=== PATIENT | female | born 1985 | race Caucasian/White ===

== ENCOUNTER → 2020-08-13 | Day surgery (SDC) | payer MEDICAID ==
[~2020-08-13] MED LIST: Albuterol 0.083% 2.5 MG/3 ML Neb Soln NEB ONE; Albuterol 0.083% 2.5 MG/3 ML Neb Soln ONE; Ketamine 500 mg/10 ML MDV ONE; Ketorolac 15 MG/ML SDV ONE; Lactated Ringers 1,000 ML IV SCH; Lidocaine 1% 4 ML ONE; Lidocaine 1% with EPINEPHrine 1:100,000 20 ML MDV ONE; Lidocaine 1%/Sod Bicarbonate in NS 8.4% 1 ML Syringe IDERM PRN; Midazolam 1 MG/ML 2 ML SDV ONE; Propofol 200 MG/20 ML SDV ONE; Sodium Chloride 0.9% 10 ML Syringe FLUSH PRN; fentaNYL 100 MCG/2 ML SDV ONE
--- NOTE | 2020-08-13 08:46 | PCM.PREANE ---
Preanesthetic Assessment - Procedure Proposed Procedure: LEEP - Anesthesia/Transfusion/Family Hx Anesthesia History: Prior Anesthesia Without Reaction Family History of Anesthesia Reaction: No - Review of Systems General: No Symptoms Pulmonary: Cough, Sputum (Smoker, 1/2 ppd x 19 years. Last cigarette 07. ), Other (Sleep Apnea, does not wear CPAP unable to tolerate. ) Cardiovascular: No Symptoms Gastrointestinal: No Symptoms Neurological: No Symptoms Other: Reports: None (Obesity BMI 41.7) - Physical Assessment NPO Status Date: 08/12/20 Vital Signs: 98F 16 99 122/83 96% Weight: 103 kg ASA Class: 3 Mental Status: Alert & Oriented x3 Airway Class: Mallampati = 3 Dentition: Reports: Normal Dentition Thyro-Mental Finger Breadths: 2 Mouth Opening Finger Breadths: 3 ROM/Head Extension: Full Lungs: Clear to Auscultation, Normal Respiratory Effort, Decreased Breath Sounds (Bilateral Bases) Cardiovascular: Regular Rate, Regular Rhythm - Allergies Allergies/Adverse Reactions: Allergies Allergy/AdvReac Type Severity Reaction Status Date / Time sulfamethoxazole Allergy Rash Verified 08/12/20 13:22 [From Bactrim] trimethoprim [From Bactrim] Allergy Rash Verified 08/12/20 13:22 - Anesthesia Plan Pre-Op Medication Ordered: Anxiolytic, Other (Albuterol Nebulizer) - Acknowledgements Anesthesia Type Planned: MAC Pt an Appropriate Candidate for the Planned Anesthesia: Yes Alternatives and Risks of Anesthesia Discussed w Pt/Guardian: Yes Pt/Guardian Understands and Agrees with Anesthesia Plan: Yes PreAnesthesia Questionnaire HEENT History: Reports: Allergic Rhinitis Cardiovascular History: Reports: None Respiratory History: Reports: Sleep Apnea Gastrointestinal History: Reports: None Genitourinary History: Reports: None [employer] History: Reports: Other (See Below) Other OB/BYN History: MENORRHAGIA, CIN3 Musculoskeletal History: Reports: None Neurological History: Reports: None Psychiatric History: Reports: Anxiety, Bipolar, Depression Endocrine/Metabolic History: Reports: None Hematologic History: Reports: None Immunologic History: Reports: None Oncologic (Cancer) History: Reports: None Dermatologic History: Reports: None - Infectious Disease History Infectious Disease History: Reports: None - Past Surgical History Head Surgeries/Procedures: Reports: None HEENT Surgical History: Reports: Adenoidectomy, Tonsillectomy Cardiovascular Surgical History: Reports: None Respiratory Surgical History: Reports: None GI Surgical History: Reports: Colonoscopy Female Surgical History: Reports: None Male Surgical History: Reports: None Endocrine Surgical History: Reports: None Neurological Surgical History: Reports: None Musculoskeletal Surgical History: Reports: Other (See Below) Other Musculoskeletal Surgeries/Procedures:: FOOT SURGERY X2 Oncologic Surgical History: Reports: None - SUBSTANCE USE Tobacco Use Status *Q: Current Every Day Tobacco User Recreational Drug Use History: No - HOME MEDS Home Medications: Home Meds Dextroamphetamine/Amphetamine [Adderall 20 mg Tablet] 40 mg PO DAILY 08/12/20 [History] buPROPion HCL [Wellbutrin Xl] 300 mg PO DAILY 08/12/20 [History] hydrOXYzine HCL [hydrOXYzine] 10 mg PO BEDTIME 08/12/20 [History] l-Norgest/E.estradiol-E.estrad [Seasonique 0.15-0.03-0.01] 1 tab PO DAILY 08/12/20 [History] - CURRENT (IN HOUSE) MEDS Current Meds: Current Medications Albuterol (Proventil Neb Soln) 2.5 mg NEB ONETIME ONE Stop: 08/13/20 08:42 Lactated Ringer's (Ringers, Lactated) 1,000 mls @ 125 mls/hr IV ASDIRECTED JOVANA Stop: 08/13/20 23:00 Lidocaine/Sodium Bicarbonate (Buffered Lidocaine 1% In Ns 8.4%) 0.25 ml IDERM ONETIME PRN PRN Reason: Prior to IV Start Stop: 08/13/20 18:00 Sodium Chloride (Saline Flush) 10 ml FLUSH ASDIRECTED PRN PRN Reason: Keep Vein Open Stop: 08/13/20 18:00 Discontinued Medications Fentanyl (Sublimaze) Confirm Administered Dose 100 mcg .ROUTE .STK-MED ONE Stop: 08/13/20 07:41 Lidocaine HCl (Xylocaine-Mpf 1%) Confirm Administered Dose 4 mls @ as directed .ROUTE .STK-MED ONE Stop: 08/13/20 07:41 Ketamine HCl (Ketalar) Confirm Administered Dose 500 mg .ROUTE .STK-MED ONE Stop: 08/13/20 07:41 Midazolam HCl (Versed 1 Mg/Ml) Confirm Administered Dose 2 mg .ROUTE .STK-MED ONE Stop: 08/13/20 07:41 Propofol (Diprivan 20 Ml) Confirm Administered Dose 600 mg .ROUTE .[facility]-MED ONE Stop: 08/13/20 07:40
--- NOTE | 2020-08-13 09:51 | PCM48HPAN ---
Post Anesthesia Note - EVALUATION WITHIN 48HRS OF ANESTHETIC Vital Signs in Normal Range: Yes Patient Participated in Evaluation: Yes Respiratory Function Stable: Yes Airway Patent: Yes Cardiovascular Function Stable: Yes Hydration Status Stable: Yes Pain Control Satisfactory: Yes Nausea and Vomiting Control Satisfactory: Yes Mental Status Recovered: Yes Vital Signs: Last Vital Signs Temp Pulse Resp BP Pulse Ox 96 08/13/20 08:41 104/71 97 18 97% 97.3F
--- NOTE | 2020-08-13 09:55 | PCM.OPNOTE ---
- General Post-Op/Procedure Note Date of Surgery/Procedure: 08/13/20 Operative Procedure(s): Colposcopy with LEEP (loop electrosurgical excision procedure) with Top-Hat excision of cervical canal Findings: Suspected DAVIDE-3 in areas of previous excision from colposcopy exam. These areas were excised during the LEEP procedure. A top hat was removed of the cervical canal in superior and inferior portions. 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 Cervical LEEP specimen with suture at the 12 o'clock position 2. Inferior portion of cervical LEEP specimen with suture at the superior portion 3. Superior Top-Hat excision of cervical canal with suture at 12 o'clock position 4. Inferior Top-Hat excision of cervical canal without suture for marking due to unknown position on removal Fluid Replacement, Intraop: 1,000 Output, Urine Amount: 0 (Voided prior to procedure) EBL in mLs: 30 Condition: Good Free Text/Narrative:: Procedure in detail: Patient was seen in the preoperative holding area and counseled on the risks, benefits and alternatives of the procedure. She desired to proceed with the procedure and consents were reviewed. Patient was brought back to operating room #3. She was given MAC anesthesia. She was positioned in dorsal lithotomy position with legs in yellowfin stirrups. A nonconducting speculum was placed in the vagina and the cervix was visualized. A colposcopic exam was performed without any significant abnormalities noted initially. Acetic acid was applied and there were acetowhite lesions around the entirety of the cervical opening. Lugol's solution was then applied to the cervix and to the vagina for further evaluation and there was decreased uptake in a circumferential portion of the cervical opening extending approximately 5 to 6 mm past the cervical opening. The cervical base was then injected with 1% lidocaine with epinephrine with 2.5 mL at each of the 2, 4, 8 and 10:00 positions. A 12 x 15 mm loop electrode was then used to excise the areas of decreased Lugol's uptake. This portion of the cervix was removed and there was noted to be a small area at the inferior portion of the cervix that had decreased uptake of Lugol's solution that was also removed at this time. The cervical LEEP specimen was marked at the 12 o'clock position with suture. The inferior portion of the cervical LEEP specimen was marked with a suture at the superior portion of the LEEP specimen. A 10 x 10 mm loop electrode was then use d to remove the Top-Hat portion of the cervical canal. After initial removal of the Top-Hat portion it was felt that the cervical canal had been cut in half and only the superior portion of the top hat was removed initially. This was marked at the superior portion of the specimen. The 10 x 10 mm electrode was then used to remove the inferior half of the Top-Hat portion of the cervical canal. On removal it was unable to be determined which was the superior and inferior portion and this was not marked. The edges of the cervical excision were cauterized using ball cautery. This was then used to cauterize the anterior portions of the surgical bed of the cervical LEEP portion. Hemostasis was noted at the end of the procedure. The procedure was completed at this time. All instruments were removed from the vagina. The patient tolerated procedure without difficulty. Patient was awoken from MAC anesthesia and taken back to the postoperative area for further recovery. Patient will be discharged home when she has met all of her postoperative milestones. We will call patient with results of the pathology once available. Patient should return to clinic if she has any complications including significant pain, fever, chills, nausea, vomiting or heavy vaginal bleeding. Reynold Dey MD 9:55 AM 08/13/2020
== END | disposition home or self-care (01) ==
LOC: JD.SDS 08:09
PROVIDERS: ATTEND Obstetrics & Gynecology
DX: D06.9 Carcinoma in situ of cervix, unspecified (principal); G47.33 Obstructive sleep apnea (adult) (pediatric); E66.9 Obesity, unspecified; F17.210 Nicotine dependence, cigarettes, uncomplicated; Z88.2 Allergy status to sulfonamides; Z79.899 Other long term (current) drug therapy; Z98.890 Other specified postprocedural states; Z68.41 Body mass index [BMI] 40.0-44.9, adult
CPT/HCPCS: 57460; 81025; 94640; J1885; J2250; J2704; J3010; J7120; 00940